=== PATIENT | male | born 1955 | race Caucasian/White ===

== ENCOUNTER 2020-01-27 12:57 | Emergency (ER) | payer OTHER, SELFPAY ==
--- NOTE | ~2020-01-27 | XR_ITS ---
EXAMINATION: XR hip RT min 3V w AP pelvis DATE: 01/27/2020 15:21 INDICATION: Right hip pain. TECHNIQUE: An anteroposterior view of the pelvis and 3 views of right hip were obtained. COMPARISON: None. FINDINGS: Bone alignment is normal. No fracture. There is mild mild osteoarthritis of the hips. There is severe lower lumbar spondylosis. IMPRESSION: 1. Mild osteoarthritis of the hips. Reviewed, dictated and finalized at location [facility].
--- NOTE | ~2020-01-27 | CT_ITS ---
EXAMINATION: CT lumbar spine wo con DATE: 01/27/2020 15:14 INDICATION: Low back pain. TECHNIQUE: Computed tomography (CT) of the lumbar spine was performed without intravenous contrast. A utomated exposure control and iterative reconstruction technique were employed. The dose-length produ ct was 423.42 mGy-cm. COMPARISON: None FINDINGS: There is 16 degrees dextroscoliosis of lumbar spine. There is a benign bone island in L5 ve rtebral body. There is mildly decreased disc height at L2-L3 and severely decreased disc height at L5 -S1. The following disc levels are specifically discussed: L1-L2: The disc does not extend beyond the endplate margin. There is mild right facet joint osteoarth ritis. There is no neural foraminal stenosis. There is no central canal stenosis. L2-L3: The disc is bulging. There is mild bilateral facet joint osteoarthritis. There is mild bilater al neural foraminal stenosis. There is mild central canal stenosis. L3-L4: The disc is bulging. There is mild right and severe left facet joint osteoarthritis. There is mild right and moderate left neural foraminal stenosis. There is mild central canal stenosis. L4-L5: The disc is bulging. There is moderate right and severe left facet joint osteoarthritis. There is moderate bilateral neural foraminal stenosis. There is mild central canal stenosis. L5-S1: The disc is bulging. There is moderate bilateral facet joint osteoarthritis. There is moderate bilateral neural foraminal stenosis. There is mild central canal stenosis. IMPRESSION: 1. Severe lumbar spondylosis. 2. Lumbar dextroscoliosis. Reviewed, dictated and finalized at location A.
[2020-01-27 13:16] VITALS: BP 144/82; PULSE 93; RESP 20; TEMP 36.8; O2SAT 99
--- NOTE | 2020-01-27 14:16 | PC.NURSE ---
Patient describes pain that starts mid right buttock and extends down the back of his right leg but wraps around anteriorly and extends down his right ob[place] to his ankle. Pain is described as an aching and throbbing pain above the knee and becomes sharp and numb in the lower leg. He is unable to find a position that relieves pain completely but pain worsens with movement or weight bearing. while on bed in left lateral recumbent position he rates pain at 3/10 that increases to 10 when standing or moving. At this time the patient is using a cane to facilitate ambulation that he began using after onset of pain. States that he is using it to keep the weight off because of the pain he is having. He denies being unsteady, states he can control the right leg, and does not feel that it is weaker than his left. Prior to yesterday he reports that he has never needed to use a cane.
[2020-01-27 14:22] VITALS: BP 107/65; PULSE 54; RESP 16; TEMP 36.4; O2SAT 96
--- NOTE | 2020-01-27 15:10 | ED.LOWEXIN ---
HPI - Extremity Injury (Lower) General Chief Complaint: Extremity Injury, Lower Stated Complaint: R leg pain Time Seen by Provider: 01/27/20 14:42 Source: patient Mode of arrival: ambulatory Limitations: no limitations History of Present Illness HPI Narrative: This is a 64-year-old male that presents to the emergency department for right sided low back pain since yesterday. Reports he was outside working in the garden. Started to note some pain on the right side of his low back. Pain radiates down the right leg. Associated with some tingling in the leg. Denies any injuries or trauma. Denies fever, rash, saddle anesthesia, or bowel/bladder incontinence. Related Data Home Medications Medication Instructions Recorded Confirmed dutasteride 0.5 mg capsule 0.5 mg PO DAILY 08/07/19 escitalopram oxalate 10 mg tablet 10 mg PO DAILY 08/07/19 omega 3 600 mg-dha 216 mg-epa 324 1 cap PO DAILY 08/07/19 mg-fish oil 1,200 mg capsule,del rel pantoprazole 40 mg tablet,delayed 40 mg PO QAM 08/07/19 release rosuvastatin 5 mg tablet 5 mg PO DAILY 08/07/19 saw pal-pumpkin [id number] [Saw cap PO 01/27/20 Myers Flat Complex([id number])] Allergies Allergy/AdvReac Type Severity Reaction Status Date / Time No Known Allergies Allergy Verified 01/27/20 14:32 Review of Systems Review of Systems: Narrative: CONSTITUTIONAL: Denies fever SKIN: Denies rash MUSCULOSKELETAL: Reports back pain, joint pain, and myalgia. NEUROLOGIC: Denies numbness, or weakness. All systems reviewed & are unremarkable except as noted in HPI and below PMFSH Social History Social History (Updated 12/26/19 @ 08:32 by Loni Bray) Smoking status: Never smoker Second hand tobacco smoke exposure: No Alcohol intake: current Substance use: never Substance use type: does not use Gender identity (if verbalized by the patient): Male Exam Narrative: Exam Narrative: GENERAL: Well-appearing, well-nourished, and in no acute distress. HEAD: Normocephalic, atraumatic. EYES: EOMI. CHEST: Clear to auscultation. No respiratory distress. No wheezes rales or rhonchi HEART: Regular rate and rhythm. No murmur heard. Normal peripheral pulses. BACK: No midline spinal tenderness EXTREMITIES: Normal range of motion. No edema. Strength equal in bilateral lower extremities (5/5). Normal DP pulses SKIN: Warm, dry, no rash. NEURO: No focal deficits. Alert and oriented x3. PSYCH: Normal mood and affect Course Vital Signs Vital signs: Vital Signs Temperature 98.3 F 01/27/20 13:16 Pulse Rate 93 01/27/20 13:16 Respiratory Rate 20 01/27/20 13:16 Blood Pressure 144/82 H 01/27/20 13:16 Pulse Oximetry 99 01/27/20 13:16 Temperature 97.9 F 01/27/20 16:37 Pulse Rate 65 01/27/20 16:37 Respiratory Rate 16 01/27/20 16:37 Blood Pressure 115/71 01/27/20 16:37 Pulse Oximetry 99 01/27/20 16:37 MDM - Extremity Injury (Lower) MDM Narrative Medical decision making narrative: Patient presents to the emergency department for low back/right hip pain since yesterday. No known injury or trauma. Patient is afebrile and nontoxic-appearing. He is neurologically intact. CT scan of the lumbar spine shows severe lumbar spondylosis. No acute findings. Right hip/pelvis x-rays without acute findings. Shows osteoarthritis of the hips. Patient and family updated on case findings. Was given Valium and Tylenol with improvement. Patient is stable and felt appropriate for further outpatient evaluation. He is to follow-up with primary care doctor. He was given warnings to return to the ER Imaging Data Radiologist's impression: ITS Impressions Lumbar Spine CT 01/27/20 15:25 IMPRESSION: 1. Severe lumbar spondylosis. 2. Lumbar dextroscoliosis. Hip/Pelvis X-Ray 01/27/20 15:27 IMPRESSION: 1. Mild osteoarthritis of the hips. Critical Care Time Critical Care Time Critical Care Time: No Discharge Plan Discharg
[2020-01-27] MEDS: ACETAMINOPHEN 500 MG TABLET 1000 MG PO (15:54)
[2020-01-27 16:37] VITALS: BP 115/71; PULSE 65; RESP 16; TEMP 36.6; O2SAT 99
[2020-01-27 21:31] VITALS: BP 110/64; PULSE 55; RESP 16; TEMP 36.4; O2SAT 97
== END 2020-01-27 17:07 | disposition home or self-care (01) ==
PROVIDERS: Emergency Provider Emergency Medicine; PCP Family Medicine
DX: M54.41 Lumbago with sciatica, right side (principal); M47.816 Spondylosis without myelopathy or radiculopathy, lumbar region; M16.0 Bilateral primary osteoarthritis of hip
CPT/HCPCS: 72131; 73502; 96372; 99284; A9270; J3360

== ENCOUNTER 2020-06-10 10:00 | Outpatient (NON) | payer OTHER, SELFPAY ==
[2020-06-11 13:30] LABS: SARS-CoV-2 RNA PCR Negative
== END 2020-06-10 10:01 ==
PROVIDERS: PCP Family Medicine; Visit Provider Physician Assistant
DX: Z20.828 Contact with and (suspected) exposure to other viral communicable diseases (principal); R50.9 Fever, unspecified; R52 Pain, unspecified
CPT/HCPCS: 87635; C9803; U0003

== ENCOUNTER 2021-05-11 16:42 | Outpatient (CLI) | payer OTHER, SELFPAY ==
--- NOTE | ~2021-05-11 | XR_ITS ---
XR_CERV2-3V_CR DATE: 05/11/2021 17:04 INDICATION: Chronic bilateral arm pain. TECHNIQUE: AP, open-mouth, lateral, swimmer views COMPARISON: None FINDINGS: There is straightening of the cervical spine. C1 and C2 are normally aligned and the odontoid process is intact. No fracture or dislocation or lock ed facet or prevertebral soft tissue swelling. There is minimal anterolisthesis at C4-5. There is mildly severe degenerative disc disease and prominent posterior spurring at C5-6. There is uncovertebral joint spurring in the mid and lower cervical spine, particularly severe on the left at C4-5 and bilaterally at C5-6. IMPRESSION: Straightening Cervical spondylosis, particularly at C5-6 Prominent uncovertebral joint spurring of the mid and lower cervical spine, which likely contributory to the complaints of bilateral arm pain Reviewed, dictated and finalized at [facility]. Reviewed, dictated and finalized at location A. IMPRESSION: Straightening Cervical spondylosis, particularly at C5-6 Prominent uncovertebral joint spurring of the mid and lower cervical spine, whi ch likely contributory to the complaints of bilateral arm pain
== END 2021-05-11 16:43 | disposition home or self-care (01) ==
LOC: ANHIMG 16:49
PROVIDERS: PCP Family Medicine; Visit Provider Nurse Practitioner Family
DX: R20.0 Anesthesia of skin (principal); R20.2 Paresthesia of skin; M47.812 Spondylosis without myelopathy or radiculopathy, cervical region; M53.82 Other specified dorsopathies, cervical region
CPT/HCPCS: 72040

== ENCOUNTER 2023-08-10 00:46 | Day surgery (SDC) | payer MEDICARE, SELFPAY ==
[2023-07-14 08:12] VITALS: BMI 24.7
--- NOTE | 2023-08-08 12:33 | SUR.PREOP ---
Patient called regarding upcoming procedure. Pt updated on arrival date and time. All questions answered.
--- NOTE | 2023-08-09 13:54 | PM.HPGS ---
History of Present Illness History of Present Illness Consent: Risks, benefits, and alternatives have been discussed and questions answered. Patient agrees to proceed with procedure. Chief complaint: neoplasm screening,GERD,Dysphagia Narrative: Eric Cadena is a 68 year old male Who is here for investigation of dysphagia. He does have chronic acid reflux. Five years ago he had an EGD was found have a slight Schatzki's ring, Which appears was not dilated at that time. He states that he has however had previous dilatations. He is also due for colon cancer screening. Review of Systems Review of Systems: All systems reviewed & are unremarkable except as noted in HPI and below PMFSH Past Medical History Medical History Degenerative arthritis of knee, bilateral Elevated PSA GERD (gastroesophageal reflux disease) HLD (hyperlipidemia) Major depression, chronic AZRA (obstructive sleep apnea) Schatzki's ring Vitamin D deficiency Surgical History Surgical History Status post hernia repair Family History Family History Mother Breast cancer Other Heart disease Social History Social History Smoking status: Never smoker Second hand tobacco smoke exposure: No Alcohol intake: current Alcohol use details: rare Substance use: never Substance use type: does not use Living arrangements: with family Occupation/Education: retired Gender identity (if verbalized by the patient): Male Sexual Orientation (if Verbalized by the Patient): Straight or Heterosexual Spiritual care concerns: No Meds Home Medications and Allergies Home Medications Medication Instructions Recorded Confirmed Type dutasteride 0.5 mg capsule 0.5 mg PO DAILY #90 caps 06/30/22 08/10/23 Rx pantoprazole 40 mg tablet,delayed 40 mg PO QAM #90 tabs 06/30/22 08/10/23 Rx release rosuvastatin 5 mg tablet 5 mg PO DAILY #90 tabs 06/30/22 08/10/23 Rx Allergies Allergy/AdvReac Type Severity Reaction Status Date / Time No Known Allergies Allergy Verified 08/10/23 07:27 Exam Const: General: alert Orientation/consciousness: patient oriented x3 Resp: Auscultation: clear to auscultation bilaterally Cardio: Rhythm: regular rhythm GI: GI Palp: Yes Soft to palpation and No Tenderness to palpation present (GI) Neuro: General: patient oriented x3 Assessment and Plan Assessment and plan (1) GERD (gastroesophageal reflux disease): Code(s): K21.9 - Gastro-esophageal reflux disease without esophagitis Status: Acute Assessment and Plan: EGD with possible biopsy or dilatation or cautery. (2) Colon cancer screening: Code(s): Z12.11 - Encounter for screening for malignant neoplasm of colon Status: Acute Assessment and Plan: Colonoscopy with possible biopsy or polypectomy or cautery or injection of substances.
[2023-08-10 07:29] VITALS: BP 139/84; PULSE 56; RESP 18; TEMP 36.2; O2SAT 100; BMI 24.9
[2023-08-10] MEDS: LACTATED RINGERS 1,000 ML 150 ML IV CONT (07:31)
--- NOTE | 2023-08-10 08:43 | SUR.OPER ---
EGD: [id number] COLON: Start 842
[2023-08-10 08:59] VITALS: BP 100/58; PULSE 55; RESP 15; O2SAT 99
--- NOTE | 2023-08-10 09:01 | SUR.OPER ---
Ascending Colon Polyp specimen not obtained. Dr. Mitchell aware.
[2023-08-10 09:09] VITALS: BP 108/78; PULSE 56; RESP 21; O2SAT 98
[2023-08-10 09:19] VITALS: BP 111/78; PULSE 51; RESP 16; O2SAT 98
--- NOTE | 2023-08-29 14:42 | WPDANESEPPF ---
Anes - Initial Pre Proc Eval Procedure: Operation Date: 08/10/23 08:30 Proposed Procedures p Esophagogastroduodenoscopy & Colonoscopy - Ryan Mitchell MD Date/Time: 08/29/23 14:42 Surgeon: Ryan Mitchell MD Pre Op Diagnosis: neoplasm screening,GERD,Dysphagia Patient Data Age: 68 Gender: M Height: 1.83 m Weight: 83.4 kg Last Vital Signs Temp 97.1 F L 08/10/23 07:29 Pulse 51 L 08/10/23 09:19 Resp 16 08/10/23 09:19 BP 111/78 08/10/23 09:19 Pulse Ox 98 08/10/23 09:19 O2 Del Method Room Air 08/10/23 09:19 Allergies Allergy/AdvReac Type Severity Reaction Status Date / Time No Known Allergies Allergy Verified 08/10/23 07:27 Home Medications Medication Instructions Recorded Confirmed Type dutasteride 0.5 mg capsule 0.5 mg PO DAILY #90 caps 06/30/22 08/10/23 Rx pantoprazole 40 mg tablet,delayed 40 mg PO QAM #90 tabs 06/30/22 08/10/23 Rx release rosuvastatin 5 mg tablet 5 mg PO DAILY #90 tabs 06/30/22 08/10/23 Rx Patient hx anesthesia problems: none Family hx anesthesia problems: none Results Review: All pre-operative results and documents have been reviewed as part of the pre-operative evaluation. [facility] Past Medical History Medical History Degenerative arthritis of knee, bilateral Elevated PSA GERD (gastroesophageal reflux disease) HLD (hyperlipidemia) Major depression, chronic AZRA (obstructive sleep apnea) Schatzki's ring Vitamin D deficiency Surgical History Surgical History Status post hernia repair Family History Family History Mother Breast cancer Other Heart disease Social History Social History Smoking status: Never smoker Second hand tobacco smoke exposure: No Alcohol intake: current Alcohol use details: rare Substance use: never Substance use type: does not use Living arrangements: with family Occupation/Education: retired Gender identity (if verbalized by the patient): Male Sexual Orientation (if Verbalized by the Patient): Straight or Heterosexual Spiritual care concerns: No Anes - Eval Final PreProcedure Day of Procedure 08/29/23 14:42 Patient weight: normal Heart: regular rate and rhythm Lungs: clear to auscultation Airway: Mallampati scale class II Neurological: alert and oriented Last oral intake: >/= 8 hours ASA classification: III Emergent: no Anesthetic plan: proceed Anesthesia type and monitoring: general GIVS and standard monitoring Results Review: All pre-operative results and documents have been reviewed as part of the pre-operative evaluation. Informed Consent: The patient's anesthetic plan and its attendant risks and benefits were discussed with the patient/family/POA. Questions were solicited and answers provided to the satisfaction of the patient/family/POA.
== END 2023-08-10 09:31 | disposition home or self-care (01) ==
PROVIDERS: PCP Family Medicine; Visit Provider Internal Medicine Gastroenterology
PROC: 0DJ08ZZ Inspection of Upper Intestinal Tract, Via Natural or Artificial Opening Endoscopic (ICD-10-PCS; CPT 43235; principal; 2023-08-10 08:30)
DX: Z12.11 Encounter for screening for malignant neoplasm of colon (principal); K57.30 Diverticulosis of large intestine without perforation or abscess without bleeding; D12.2 Benign neoplasm of ascending colon; K63.5 Polyp of colon; K22.2 Esophageal obstruction; K44.9 Diaphragmatic hernia without obstruction or gangrene; K21.00 Gastro-esophageal reflux disease with esophagitis, without bleeding; E78.5 Hyperlipidemia, unspecified; G47.33 Obstructive sleep apnea (adult) (pediatric); F32.A Depression, unspecified
CPT/HCPCS: 45385; 43249; 88305; C1726; J2704; J7120